=== PATIENT | female | born 1955 | race Caucasian/White ===

== ENCOUNTER → 2023-08-29 07:12 | Outpatient (REF) | payer OTHER, SELFPAY | LOC: WDC 07:12 | PROVIDERS: ATTENDING PHYSICIAN Internal Medicine Hematology & Oncology; FAMILY PHYSICIAN Family Medicine | DX: Z12.31 Encounter for screening mammogram for malignant neoplasm of breast (principal); Z85.3 Personal history of malignant neoplasm of breast; C50.812 Malignant neoplasm of overlapping sites of left female breast | CPT/HCPCS: 77063; 77067 ==

== ENCOUNTER → 2023-10-20 08:26 | Outpatient (REF) | payer OTHER, SELFPAY | LOC: RAD 08:26 | PROVIDERS: ATTENDING PHYSICIAN Family Medicine | DX: R05.9 Cough, unspecified (principal) | CPT/HCPCS: 71046 ==

== ENCOUNTER → 2024-03-06 06:17 | Day surgery (SDC) | payer OTHER, SELFPAY | LOC: GI 06:17 | PROVIDERS: ATTENDING PHYSICIAN Specialist | DX: K22.89 Other specified disease of esophagus (principal); K22.70 Barrett's esophagus without dysplasia | CPT/HCPCS: 43239; 88305 ==

== ENCOUNTER → 2024-09-03 07:06 | Outpatient (REF) | payer OTHER, SELFPAY | LOC: WDC 07:06 | PROVIDERS: ATTENDING PHYSICIAN Internal Medicine Hematology & Oncology; FAMILY PHYSICIAN Family Medicine | DX: Z12.31 Encounter for screening mammogram for malignant neoplasm of breast (principal) | CPT/HCPCS: 77063; 77067 ==

== ENCOUNTER → 2024-11-18 17:03 | Outpatient (REF) | payer OTHER, SELFPAY | LOC: RAD 17:03 | PROVIDERS: ATTENDING PHYSICIAN Advanced Practice Midwife; FAMILY PHYSICIAN Family Medicine | DX: R10.2 Pelvic and perineal pain (principal) | CPT/HCPCS: 76856 ==

== ENCOUNTER → 2024-12-31 17:27 | Outpatient (REF) | payer OTHER, SELFPAY | LOC: RCS 17:27 | PROVIDERS: ATTENDING PHYSICIAN Internal Medicine Cardiovascular Disease; FAMILY PHYSICIAN Family Medicine | DX: R00.2 Palpitations (principal); R00.0 Tachycardia, unspecified | CPT/HCPCS: 93306 ==